=== PATIENT | female | born 1980 | race Hispanic/Latino ===

== ENCOUNTER 2018-07-08 18:03 | Emergency (ER) | payer MEDICAID ==
[~2018-07-08 18:03] MED LIST: FOLI1TAB15 PO; GLIM1TAB2 PO; LISI2.5T2 PO; METF-446 PO
== END 2018-07-08 19:55 | disposition home or self-care (01) ==
LOC: EDH 18:03
DX: E11.65 Type 2 diabetes mellitus with hyperglycemia (principal); J06.9 Acute upper respiratory infection, unspecified; Z88.6 Allergy status to analgesic agent; Z88.0 Allergy status to penicillin; Z79.84 Long term (current) use of oral hypoglycemic drugs; Z98.890 Other specified postprocedural states; Z90.49 Acquired absence of other specified parts of digestive tract
CPT/HCPCS: 82948; 99282

== ENCOUNTER 2020-09-28 19:37 | Emergency (ER) | payer MEDICAID ==
[~2020-09-28 19:37] MED LIST changes: +GLIM1TAB18 PO; -GLIM1TAB2 PO; +LISI2.5T13 PO; -LISI2.5T2 PO
[2020-09-28 19:57] LABS: BASOPHILS % (AUTO) 0.5 % (0.0-5.0); EOSINOPHILS % (AUTO) 1.2 % (0.0-8.0); HEMATOCRIT 40.6 % (36-48); LYMPHOCYTES % (AUTO) 22.4 % (21.0-51.0); MEAN CORPUSCULAR HEMOGLOBIN 28.4 pg (27.0-33.0); MEAN CORPUSCULAR HGB CONC 33.3 g/dL (32.0-36.0); MEAN CORPUSCULAR VOLUME 85.3 fL (79-99); MONOCYTES % (AUTO) 6.6 % (3.0-13.0); PLATELET COUNT (AUTO) 468 K/uL (130-400); RED BLOOD CELL COUNT(AUTO) 4.76 MIL/uL (4.00-5.50); RED CELL DISTRIBUTION WIDTH 14.1 % (11.0-15.5); WHITE BLOOD COUNT (AUTO) 16.2 K/uL (4.8-10.8)
[2020-09-28 20:05] LABS: CREATININE 1.1 mg/dL (0.5-1.5)
[2020-09-28 20:15] LABS: ALBUMIN 3.8 g/dL (3.5-5.0); BILIRUBIN,TOTAL 0.3 mg/dL (0.2-1.0); TOTAL PROTEIN, SERUM 8.2 g/dL (6.0-8.3)
[2020-09-28 20:44] LABS: T4 (THYROXINE) 10.6 ug/dL (4.7-13.3); THYROID STIMULATING HORMONE 3.82 uIU/mL (0.36-3.74)
[2020-09-28 22:45] LABS: AMPHET/METH SCREEN,URINE NEGATIVE (NEGATIVE); BARBITURATE SCREEN, URINE NEGATIVE (NEGATIVE); BENZODIAZEPINES SCREEN,URINE NEGATIVE (NEGATIVE); CANNABINOID SCREEN,URINE NEGATIVE (NEGATIVE); COCAINE SCREEN,URINE NEGATIVE (NEGATIVE); OPIATE SCREEN,URINE NEGATIVE (NEGATIVE); PHENCYCLIDINE SCREEN,URINE NEGATIVE (NEGATIVE)
[2020-09-29] MEDS ORDERED: METOPROLOL TARTRATE 1 MG/ML 5ML VIAL IV ONE (00:07)
[2021-01-19] MEDS ORDERED: LISI2.5T13 PO (00:09)
[2021-01-19] MEDS ORDERED: SITA1TAB6 PO (00:09)
[2021-01-19] MEDS ORDERED: VERA120T92 PO (00:09)
[2021-01-19] MEDS ORDERED: DILT120C89 PO (11:53)
[2021-01-19] MEDS ORDERED: LEVO500T90 PO (11:56)
== END 2020-09-29 03:07 | disposition home or self-care (01) ==
LOC: EDH 19:37
DX: I47.1 Supraventricular tachycardia (principal); R42 Dizziness and giddiness; E11.9 Type 2 diabetes mellitus without complications; Z88.0 Allergy status to penicillin; Z88.6 Allergy status to analgesic agent; Z90.49 Acquired absence of other specified parts of digestive tract; Z98.890 Other specified postprocedural states
CPT/HCPCS: 36415; 71045; 80053; 80305; 84436; 84443; 84484; 85025; 93005; 96361; 96374; 99285; J3490; J7030

== ENCOUNTER 2022-03-27 08:52 | Emergency (ER) | payer MEDICAID ==
[~2022-03-27] VITALS: Ht 167.6 cm; Wt 78.5 kg
[~2022-03-27 08:52] MED LIST changes: +DILT120C89 PO; +LEVO-70 PO; -METF-446 PO; +SITA1TAB6 PO
[2022-03-27 09:25] LABS: BASOPHILS % (AUTO) 0.3 % (0.0-5.0); EOSINOPHILS % (AUTO) 0.8 % (0.0-8.0); HEMATOCRIT 41.8 % (36-48); LYMPHOCYTES % (AUTO) 4.8 % (21.0-51.0); MEAN CORPUSCULAR HEMOGLOBIN 27.4 pg (27.0-33.0); MEAN CORPUSCULAR VOLUME 83.1 fL (79-99); NEUTROPHILS % (AUTO) 89.6 % (40.0-77.0); PLATELET COUNT (AUTO) 394 K/uL (130-400); RED BLOOD CELL COUNT(AUTO) 5.03 MIL/uL (4.00-5.50); RED CELL DISTRIBUTION WIDTH 14.6 % (11.0-15.5); WHITE BLOOD COUNT (AUTO) 17.3 K/uL (4.8-10.8)
[2022-03-27 09:32] LABS: CREATININE 0.9 mg/dL (0.5-1.5); POTASSIUM 4.5 mmol/L (3.5-5.1)
[2022-03-27 09:36] LABS: ALBUMIN 3.7 g/dL (3.5-5.0); TOTAL PROTEIN, SERUM 8.1 g/dL (6.0-8.3)
[2022-03-27] MEDS ORDERED: 0.9%NACL 1000ML 1,000 ML IV SCH (10:30)
[2022-03-27] MEDS ORDERED: HYDROCODONE/ACETAMINOPHEN 5/325 MG TAB PO ONE (10:30)
[2022-03-27] MEDS ORDERED: DILTIAZEM 180MG SR CAP PO ONE (11:30)
[2022-03-27] MEDS ORDERED: CLINDAMYCIN IVPB 600MG/50ML 50 ML IV ONE (11:30)
[2022-03-27 11:34] LABS: APPEARANCE,URINE CLEAR (CLEAR); BILIRUBIN,URINE NEGATIVE (NEGATIVE); COLOR,URINE YELLOW (YELLOW); GLUCOSE, URINE (UA) >=1000 mg/dL (NEGATIVE); KETONES,URINE 40 mg/dL (NEGATIVE); LEUKOCYTE ESTERASE ,URINE NEGATIVE Leu/uL (NEGATIVE); NITRATE,URINE NEGATIVE (NEGATIVE); OCCULT BLOOD,URINE SMALL (NEGATIVE); PH,URINE 5.5 (5.0-8.0); PROTEIN,URINE NEGATIVE (NEGATIVE); UROBILINOGEN,URINE 0.2 mg/dL (0.2-1.0)
[2022-03-27 11:50] LABS: BACTERIA,URINE Rare /HPF (None Seen); RBC,URINE 0-1 /HPF (0-1); SQUAMOUS EPITHELIAL CELL,UR 0-2 /HPF (0-2); WBC,URINE None Seen /HPF (0-1)
[2022-03-27] MEDS ORDERED: ACET-2079 PO (12:47)
[2022-03-27] MEDS ORDERED: CLIN-141 PO (12:47)
[2022-03-27 13:06] VITALS: BP 105/73
== END 2022-03-27 13:07 | disposition home or self-care (01) ==
LOC: EDH 08:52
DX: J02.0 Streptococcal pharyngitis (principal); E86.0 Dehydration; Z20.822 Contact with and (suspected) exposure to COVID-19; E11.9 Type 2 diabetes mellitus without complications; I10 Essential (primary) hypertension; Z88.0 Allergy status to penicillin; Z79.899 Other long term (current) drug therapy; Z88.6 Allergy status to analgesic agent; Z79.84 Long term (current) use of oral hypoglycemic drugs
CPT/HCPCS: 99284; 96365; 87635; 96361; 80053; 85025; 87880; 87804 ×2; 81001; 36415; 93005; C9803; J7030; J3490

== ENCOUNTER 2022-07-31 11:09 | Emergency (ER) | payer MEDICAID ==
[~2022-07-31] VITALS: Ht 160 cm; Wt 83.9 kg
[~2022-07-31 11:09] MED LIST changes: +ACET-2079 PO; +CLIN-141 PO
[2022-07-31] MEDS ORDERED: ADENOSINE 6MG VIAL IV ONE ×2 (11:17→12:00)
[2022-07-31 11:47] LABS: BASOPHILS % (AUTO) 0.5 % (0.0-5.0); EOSINOPHILS % (AUTO) 1.1 % (0.0-8.0); HEMATOCRIT 46.8 % (36-48); LYMPHOCYTES % (AUTO) 37.7 % (21.0-51.0); MEAN CORPUSCULAR HEMOGLOBIN 27.5 pg (27.0-33.0); MEAN CORPUSCULAR HGB CONC 32.3 g/dL (32.0-36.0); MEAN CORPUSCULAR VOLUME 85.2 fL (79-99); MONOCYTES % (AUTO) 6.3 % (3.0-13.0); PLATELET COUNT (AUTO) 465 K/uL (130-400); RED BLOOD CELL COUNT(AUTO) 5.49 MIL/uL (4.00-5.50); RED CELL DISTRIBUTION WIDTH 14.2 % (11.0-15.5); WHITE BLOOD COUNT (AUTO) 16.1 K/uL (4.8-10.8)
[2022-07-31 11:58] LABS: CREATININE 0.9 mg/dL (0.5-1.5); POTASSIUM 3.8 mmol/L (3.5-5.1)
[2022-07-31 12:02] LABS: ALBUMIN 4.3 g/dL (3.5-5.0); TOTAL PROTEIN, SERUM 8.9 g/dL (6.0-8.3)
[2022-07-31 13:25] VITALS: BP 98/67
== END 2022-07-31 13:38 | disposition home or self-care (01) ==
LOC: EDH 11:09
DX: I47.1 Supraventricular tachycardia (principal); I10 Essential (primary) hypertension; E11.9 Type 2 diabetes mellitus without complications; Z88.0 Allergy status to penicillin; Z88.6 Allergy status to analgesic agent; Z79.84 Long term (current) use of oral hypoglycemic drugs; Z79.899 Other long term (current) drug therapy; Z98.890 Other specified postprocedural states
CPT/HCPCS: 99285; 96374; 71045; 84484; 80053; 85025; 36415; 93005 ×3; J3490; J0153

== ENCOUNTER 2023-04-09 14:46 | Emergency (ER) | payer MEDICAID, OTHER ==
[~2023-04-09] VITALS: Ht 160 cm; Wt 78.9 kg
[~2023-04-09 14:46] MED LIST changes: +BACI30OI10 TP
[2023-04-09 15:16] LABS: BASOPHILS # (AUTO) 0.07 K/uL (0.00-0.20); BASOPHILS % (AUTO) 0.4 % (0.0-5.0); EOSINOPHILS # (AUTO) 0.11 K/uL (0.00-0.70); EOSINOPHILS % (AUTO) 0.6 % (0.0-8.0); HEMATOCRIT 43.4 % (36-48); IMMATURE GRANULOCYTE ABSOLUTE 0.09 K/uL (0-1); LYMPHOCYTES # (AUTO) 3.9 K/uL (1.0-4.8); LYMPHOCYTES % (AUTO) 20.1 % (21.0-51.0); MEAN CORPUSCULAR HEMOGLOBIN 27.5 pg (27.0-33.0); MEAN CORPUSCULAR HGB CONC 31.8 g/dL (32.0-36.0); MEAN CORPUSCULAR VOLUME 86.5 fL (79-99); MONOCYTES % (AUTO) 5.4 % (3.0-13.0); NEUTROPHILS # (AUTO) 14.1 K/uL (1.8-7.7); PLATELET COUNT (AUTO) 502 K/uL (130-400); RED BLOOD CELL COUNT(AUTO) 5.02 MIL/uL (4.00-5.50); RED CELL DISTRIBUTION WIDTH 14.4 % (11.0-15.5); WHITE BLOOD COUNT (AUTO) 19.2 K/uL (4.8-10.8)
[2023-04-09 15:44] LABS: ALBUMIN 4.2 g/dL (3.5-5.0); BILIRUBIN,TOTAL 0.5 mg/dL (0.2-1.0); MAGNESIUM 1.7 mg/dL (1.80-2.40)
[2023-04-09] MEDS ORDERED: MAGNESIUM OXIDE 400 MG TABLET PO ONE ×2 (16:24→16:30)
[2023-04-09 16:58] LABS: APPEARANCE,URINE CLEAR (CLEAR); BILIRUBIN,URINE NEGATIVE (NEGATIVE); GLUCOSE, URINE (UA) >=1000 mg/dL (NEGATIVE); HCG,QUALITATIVE URINE NEGATIVE (NEGATIVE); KETONES,URINE 5 mg/dL (NEGATIVE); LEUKOCYTE ESTERASE ,URINE NEGATIVE Leu/uL (NEGATIVE); NITRATE,URINE NEGATIVE (NEGATIVE); PROTEIN,URINE NEGATIVE (NEGATIVE); UROBILINOGEN,URINE 0.2 mg/dL (0.2-1.0)
[2023-04-09 16:59] LABS: ADD UA MICROSCOPIC YES; COLOR,URINE LIGHT-YELLOW (YELLOW)
[2023-04-09 17:00] LABS: RBC,URINE 0-1 /HPF (0-1); SQUAMOUS EPITHELIAL CELL,UR RARE /HPF (0-2); WBC,URINE 0-1 /HPF (0-1)
[2023-04-09] MEDS ORDERED: LACTATED RINGERS 1000ML 1,000 ML IV ONE (17:49)
[2023-04-09] MEDS ORDERED: ACETAMINOPHEN 325 MG TAB ONE (17:49)
[2023-04-09] MEDS ORDERED: LACTATED RINGERS 1000ML IV SCH (18:00)
[2023-04-09] MEDS ORDERED: ACETAMINOPHEN 325 MG TAB PO ONE (18:00)
[2023-04-09 19:13] VITALS: BP 122/72; PULSE 97; RESP 18; O2SAT 99
== END 2023-04-09 19:33 | disposition home or self-care (01) ==
LOC: EDH 14:46
DX: D72.829 Elevated white blood cell count, unspecified (principal); H53.8 Other visual disturbances; R20.0 Anesthesia of skin; R51.9 Headache, unspecified; I10 Essential (primary) hypertension; E11.9 Type 2 diabetes mellitus without complications; E78.00 Pure hypercholesterolemia, unspecified; Z79.899 Other long term (current) drug therapy; Z98.890 Other specified postprocedural states; Z88.0 Allergy status to penicillin; Z88.6 Allergy status to analgesic agent
CPT/HCPCS: 99285; 70551; 96360; 70450; 71045; 82550; 83735; 83874; 84484; 80053; 85025; 81001; 81025; 36415; 93005; J7120

== ENCOUNTER 2023-06-04 19:25 | Emergency (ER) | payer OTHER ==
[~2023-06-04] VITALS: Ht 157.5 cm; Wt 79.4 kg
[2023-06-04 19:53] LABS: BASOPHILS # (AUTO) 0.05 K/uL (0.00-0.20); BASOPHILS % (AUTO) 0.3 % (0.0-5.0); EOSINOPHILS # (AUTO) 0.27 K/uL (0.00-0.70); EOSINOPHILS % (AUTO) 1.6 % (0.0-8.0); HEMATOCRIT 43.8 % (36-48); IMMATURE GRANULOCYTE ABSOLUTE 0.09 K/uL (0-1); LYMPHOCYTES # (AUTO) 4.4 K/uL (1.0-4.8); LYMPHOCYTES % (AUTO) 26.1 % (21.0-51.0); MEAN CORPUSCULAR HEMOGLOBIN 26.8 pg (27.0-33.0); MEAN CORPUSCULAR HGB CONC 32.4 g/dL (32.0-36.0); MEAN CORPUSCULAR VOLUME 82.6 fL (79-99); MONOCYTES # (AUTO) 1.1 K/uL (0.1-1.0); MONOCYTES % (AUTO) 6.6 % (3.0-13.0); NEUTROPHILS % (AUTO) 64.9 % (40.0-77.0); PLATELET COUNT (AUTO) 521 K/uL (130-400)
[2023-06-04 19:58] LABS: HCG,QUALITATIVE URINE NEGATIVE (NEGATIVE)
[2023-06-04 19:59] LABS: CREATININE 1.3 mg/dL (0.5-1.5); POTASSIUM 3.5 mmol/L (3.5-5.1)
[2023-06-04 20:06] LABS: BILIRUBIN,TOTAL 0.4 mg/dL (0.2-1.0)
[2023-06-04 20:19] LABS: APPEARANCE,URINE CLEAR (CLEAR); BILIRUBIN,URINE NEGATIVE (NEGATIVE); COLOR,URINE COLORLESS (YELLOW); GLUCOSE, URINE (UA) >=1000 mg/dL (NEGATIVE); KETONES,URINE NEGATIVE (NEGATIVE); LEUKOCYTE ESTERASE ,URINE NEGATIVE Leu/uL (NEGATIVE); NITRATE,URINE NEGATIVE (NEGATIVE); OCCULT BLOOD,URINE NEGATIVE (NEGATIVE); PROTEIN,URINE NEGATIVE (NEGATIVE); UROBILINOGEN,URINE 0.2 mg/dL (0.2-1.0)
[2023-06-04 20:20] LABS: ADD UA MICROSCOPIC YES
[2023-06-04 20:24] LABS: BACTERIA,URINE RARE /HPF (None Seen); SQUAMOUS EPITHELIAL CELL,UR FEW /HPF (0-2)
[2023-06-04 21:07] LABS: RAPID GROUP A STREP negative (NEGATIVE)
[2023-06-04 21:12] LABS: SARS-CoV-2, RNA, NAAT NEGATIVE SARS CoV-2 (NEGATIVE)
[2023-06-04 21:18] LABS: INFLUENZA TYPE A Negative For Type A (NEGATIVE); INFLUENZA TYPE B Negative For Type B (NEGATIVE)
[2023-06-04] MEDS ORDERED: MECL-226 PO (23:12)
[2023-06-04 23:15] VITALS: BP 117/50; PULSE 74; RESP 14; O2SAT 97
== END 2023-06-04 23:21 | disposition home or self-care (01) ==
LOC: EDH 19:25
DX: R42 Dizziness and giddiness (principal); D72.829 Elevated white blood cell count, unspecified; I10 Essential (primary) hypertension; E11.9 Type 2 diabetes mellitus without complications; E78.00 Pure hypercholesterolemia, unspecified; Z20.822 Contact with and (suspected) exposure to COVID-19; Z79.899 Other long term (current) drug therapy; Z90.49 Acquired absence of other specified parts of digestive tract; Z98.890 Other specified postprocedural states; Z88.0 Allergy status to penicillin; Z88.8 Allergy status to other drugs, medicaments and biological substances
CPT/HCPCS: 99285; 70450; 71045; 87635; 82550; 84484; 80053; 85025; 87880; 87804 ×2; 81001; 81025; 36415; 93005; C9803

== ENCOUNTER 2023-08-28 08:25 | Observation (INO) | payer BC, OTHER ==
[~2023-08-28] VITALS: Ht 160 cm; Wt 80.5 kg
[~2023-08-28 08:25] MED LIST changes: +MECL-226 PO
[2023-08-28] MEDS: ADENOSINE 6MG VIAL IV ONE ×2 (08:48)
[2023-08-28 08:58] LABS: BASOPHILS # (AUTO) 0.07 K/uL (0.00-0.20); BASOPHILS % (AUTO) 0.4 % (0.0-5.0); EOSINOPHILS # (AUTO) 0.16 K/uL (0.00-0.70); EOSINOPHILS % (AUTO) 0.9 % (0.0-8.0); HEMATOCRIT 46.7 % (36-48); IMMATURE GRANULOCYTE ABSOLUTE 0.06 K/uL (0-1); LYMPHOCYTES # (AUTO) 3.8 K/uL (1.0-4.8); LYMPHOCYTES % (AUTO) 21.3 % (21.0-51.0); MEAN CORPUSCULAR HEMOGLOBIN 26.9 pg (27.0-33.0); MEAN CORPUSCULAR HGB CONC 32.8 g/dL (32.0-36.0); MEAN CORPUSCULAR VOLUME 82.1 fL (79-99); MONOCYTES # (AUTO) 0.8 K/uL (0.1-1.0); MONOCYTES % (AUTO) 4.7 % (3.0-13.0); NEUTROPHILS # (AUTO) 12.8 K/uL (1.8-7.7); NEUTROPHILS % (AUTO) 72.4 % (40.0-77.0); PLATELET COUNT (AUTO) 600 K/uL (130-400); RED BLOOD CELL COUNT(AUTO) 5.69 MIL/uL (4.00-5.50); WHITE BLOOD COUNT (AUTO) 17.7 K/uL (4.8-10.8)
[2023-08-28] MEDS: CLINDAMYCIN IVPB 600MG/50ML 50 ML IV SCH (09:06)
[2023-08-28 09:15] LABS: CREATININE 0.9 mg/dL (0.5-1.5); POTASSIUM 4.4 mmol/L (3.5-5.1)
[2023-08-28 09:28] LABS: MAGNESIUM 1.9 mg/dL (1.80-2.40); THYROID STIMULATING HORMONE 2.39 uIU/mL (0.36-3.74)
[2023-08-28 10:10] LABS: B-TYPE NATRIURETIC PEPTIDE < 5 pg/mL (0-100)
[2023-08-28 10:50] LABS: APPEARANCE,URINE CLEAR (CLEAR); BILIRUBIN,URINE NEGATIVE (NEGATIVE); COLOR,URINE COLORLESS (YELLOW); GLUCOSE, URINE (UA) >=1000 mg/dL (NEGATIVE); KETONES,URINE 10 mg/dL (NEGATIVE); LEUKOCYTE ESTERASE ,URINE NEGATIVE Leu/uL (NEGATIVE); NITRATE,URINE NEGATIVE (NEGATIVE); OCCULT BLOOD,URINE SMALL (NEGATIVE); PROTEIN,URINE NEGATIVE (NEGATIVE); UROBILINOGEN,URINE 0.2 mg/dL (0.2-1.0)
[2023-08-28 10:51] LABS: ADD UA MICROSCOPIC YES
[2023-08-28 10:52] LABS: MUCUS,URINE RARE LPF (None Seen)
[2023-08-28] MEDS ORDERED: ONDANSETRON 4MG INJ IVP PRN (12:30)
[2023-08-28] MEDS ORDERED: ACETAMINOPHEN 325 MG TAB PO PRN (12:30)
[2023-08-28] MEDS ORDERED: MAGNESIUM 2GM PREMIX 50ML 50 ML IV SCH (12:30)
[2023-08-28 12:47] LABS: HEMOGLOBIN A1C 7.3 % (4.0-6.0)
[2023-08-28] MEDS: 0.9%NACL 1000ML 1,000 ML IV SCH (14:14)
[2023-08-28 15:06] LABS: AMPHET/METH SCREEN,URINE NEGATIVE (NEGATIVE); BARBITURATE SCREEN, URINE NEGATIVE (NEGATIVE); BENZODIAZEPINES SCREEN,URINE NEGATIVE (NEGATIVE); CANNABINOID SCREEN,URINE NEGATIVE (NEGATIVE); COCAINE SCREEN,URINE NEGATIVE (NEGATIVE); OPIATE SCREEN,URINE NEGATIVE (NEGATIVE); PHENCYCLIDINE SCREEN,URINE NEGATIVE (NEGATIVE)
[2023-08-28] MEDS ORDERED: DILT240C97 PO (15:12)
[2023-08-28 16:00] VITALS: O2SAT 96
[2023-08-28 16:05] VITALS: BP 137/81; PULSE 85; RESP 18
[2023-08-28] MEDS: INSULIN HUMULIN R 100 UNIT/ML 3ML SQ SCH (16:30)
[2023-08-28] MEDS: DILTIAZEM 180MG SR CAP PO ONE (17:31)
[2023-08-28 19:46] VITALS: BP 139/79; PULSE 102; RESP 18
[2023-08-28 20:00] VITALS: O2SAT 99
[2023-08-28] MEDS: ATORVASTATIN 20 MG TABLET PO SCH (21:39)
[2023-08-28] MEDS: FAMOTIDINE 20MG VIAL IV SCH (21:39)
[2023-08-28 22:30] VITALS: PULSE 140; RESP 18
[2023-08-28 22:40] VITALS: PULSE 95; RESP 18
[2023-08-29 00:32] VITALS: BP 137/74; PULSE 92; RESP 18
[2023-08-29 04:00] LABS: BASOPHILS # (AUTO) 0.07 K/uL (0.00-0.20); BASOPHILS % (AUTO) 0.5 % (0.0-5.0); EOSINOPHILS % (AUTO) 1.3 % (0.0-8.0); HEMATOCRIT 40.8 % (36-48); IMMATURE GRANULOCYTE ABSOLUTE 0.05 K/uL (0-1); LYMPHOCYTES # (AUTO) 3.7 K/uL (1.0-4.8); LYMPHOCYTES % (AUTO) 24.5 % (21.0-51.0); MEAN CORPUSCULAR HEMOGLOBIN 27.3 pg (27.0-33.0); MEAN CORPUSCULAR HGB CONC 32.6 g/dL (32.0-36.0); MEAN CORPUSCULAR VOLUME 83.6 fL (79-99); MONOCYTES # (AUTO) 1.1 K/uL (0.1-1.0); MONOCYTES % (AUTO) 7.2 % (3.0-13.0); NEUTROPHILS # (AUTO) 9.9 K/uL (1.8-7.7); NEUTROPHILS % (AUTO) 66.2 % (40.0-77.0); PLATELET COUNT (AUTO) 517 K/uL (130-400); RED BLOOD CELL COUNT(AUTO) 4.88 MIL/uL (4.00-5.50); WHITE BLOOD COUNT (AUTO) 14.9 K/uL (4.8-10.8)
[2023-08-29 04:12] LABS: ALBUMIN 3.3 g/dL (3.5-5.0); BILIRUBIN,TOTAL 0.7 mg/dL (0.2-1.0); CREATININE 0.9 mg/dL (0.5-1.5); MAGNESIUM 1.9 mg/dL (1.80-2.40); POTASSIUM 4.1 mmol/L (3.5-5.1); TOTAL PROTEIN, SERUM 7.4 g/dL (6.0-8.3)
[2023-08-29 04:38] VITALS: BP 135/78; PULSE 90; RESP 18
[2023-08-29 08:00] VITALS: O2SAT 97
[2023-08-29 08:21] VITALS: BP 139/76; PULSE 89; RESP 18
[2023-08-29] MEDS ORDERED: DILTIAZEM HCL PO SCH (09:00)
[2023-08-29] MEDS: DILTIAZEM 180MG SR CAP PO SCH (09:22)
[2023-08-29] MEDS: FOLIC ACID 1 MG TABLET PO SCH (09:22)
[2023-08-29] MEDS ORDERED: DILT360C24 PO (09:28)
[2023-08-29] MEDS ORDERED: AMOX-426 PO (09:36)
[2023-08-29] MEDS ORDERED: CLIN-141 PO (10:09)
== END 2023-08-29 10:24 | disposition home or self-care (01) ==
LOC: EDH 08:25 → EDHIP 12:11 → INTOOBSV 12:11 → 2AH 15:01
PROVIDERS: ADMIT Internal Medicine; ATTEND Internal Medicine
DX: I47.10 Supraventricular tachycardia, unspecified (principal); I10 Essential (primary) hypertension; E78.5 Hyperlipidemia, unspecified; E86.0 Dehydration; E66.9 Obesity, unspecified; D75.9 Disease of blood and blood-forming organs, unspecified; K04.7 Periapical abscess without sinus; D72.829 Elevated white blood cell count, unspecified; D75.839 Thrombocytosis, unspecified; R00.2 Palpitations; E11.9 Type 2 diabetes mellitus without complications; F19.90 Other psychoactive substance use, unspecified, uncomplicated; Z79.899 Other long term (current) drug therapy; Z90.49 Acquired absence of other specified parts of digestive tract; Z98.891 History of uterine scar from previous surgery; Z68.31 Body mass index [BMI] 31.0-31.9, adult; Z88.0 Allergy status to penicillin; Z88.6 Allergy status to analgesic agent
CPT/HCPCS: 99285; 96361 ×2; 96365; 71045; 96375; 83036; 84443; 82550; 83735 ×2; 84484 ×2; 80048; 83880; 80305; 85025 ×2; 82948 ×3; 84439; 84481; 86140; 81025; 36415 ×2; 93005 ×2; 84145; 81001; 96376; 80053; J0153; J3490 ×3; G0378

== ENCOUNTER 2023-09-09 07:12 | Emergency (ER) | payer BC, OTHER ==
[~2023-09-09] VITALS: Ht 160 cm; Wt 80.3 kg
[~2023-09-09 07:12] MED LIST changes: -DILT120C89 PO; +DILT360C24 PO; -LEVO-70 PO
[2023-09-09 07:36] LABS: BASOPHILS # (AUTO) 0.08 K/uL (0.00-0.20); BASOPHILS % (AUTO) 0.5 % (0.0-5.0); EOSINOPHILS # (AUTO) 0.24 K/uL (0.00-0.70); EOSINOPHILS % (AUTO) 1.5 % (0.0-8.0); HEMATOCRIT 44.4 % (36-48); IMMATURE GRANULOCYTE ABSOLUTE 0.09 K/uL (0-1); LYMPHOCYTES # (AUTO) 4.2 K/uL (1.0-4.8); LYMPHOCYTES % (AUTO) 26.1 % (21.0-51.0); MEAN CORPUSCULAR VOLUME 84.6 fL (79-99); MONOCYTES # (AUTO) 0.9 K/uL (0.1-1.0); MONOCYTES % (AUTO) 5.6 % (3.0-13.0); NEUTROPHILS # (AUTO) 10.5 K/uL (1.8-7.7); NEUTROPHILS % (AUTO) 65.7 % (40.0-77.0); PLATELET COUNT (AUTO) 464 K/uL (130-400); RED BLOOD CELL COUNT(AUTO) 5.25 MIL/uL (4.00-5.50); RED CELL DISTRIBUTION WIDTH 15.9 % (11.0-15.5)
[2023-09-09 07:47] LABS: INR <= 0.93 (0.85-1.15); PROTHROMBIN TIME 10.1 SEC (9.6-11.6)
[2023-09-09 07:48] LABS: PARTIAL THROMBOPLASTIN TIME 27.2 SEC (26.3-35.5)
[2023-09-09] MEDS: DILTIAZEM 125 MG/25 ML INJ IV ONE (07:48)
[2023-09-09] MEDS: DILTIAZEM 25MG INJ IVP ONE ×2 (07:48→09:14)
[2023-09-09 07:53] LABS: ALBUMIN 3.9 g/dL (3.5-5.0); BILIRUBIN,TOTAL 0.3 mg/dL (0.2-1.0); CREATININE 0.8 mg/dL (0.5-1.5); POTASSIUM 4.5 mmol/L (3.5-5.1); TOTAL PROTEIN, SERUM 8.8 g/dL (6.0-8.3)
[2023-09-09 08:13] LABS: B-TYPE NATRIURETIC PEPTIDE 10 pg/mL (0-100)
[2023-09-09 08:45] LABS: THYROID STIMULATING HORMONE 3.26 uIU/mL (0.36-3.74)
[2023-09-09] MEDS: ADENOSINE 6MG VIAL IV ONE (08:55)
[2023-09-09 09:01] LABS: APPEARANCE,URINE CLEAR (CLEAR); BILIRUBIN,URINE NEGATIVE (NEGATIVE); COLOR,URINE COLORLESS (YELLOW); GLUCOSE, URINE (UA) >=1000 mg/dL (NEGATIVE); KETONES,URINE NEGATIVE (NEGATIVE); LEUKOCYTE ESTERASE ,URINE NEGATIVE Leu/uL (NEGATIVE); NITRATE,URINE NEGATIVE (NEGATIVE); OCCULT BLOOD,URINE NEGATIVE (NEGATIVE); PROTEIN,URINE NEGATIVE (NEGATIVE); UROBILINOGEN,URINE 0.2 mg/dL (0.2-1.0)
[2023-09-09 09:02] LABS: ADD UA MICROSCOPIC YES
[2023-09-09 09:07] LABS: RBC,URINE 0-1 /HPF (0-1); SQUAMOUS EPITHELIAL CELL,UR RARE /HPF (0-2)
[2023-09-09 12:32] VITALS: BP 108/69; PULSE 98; RESP 20; O2SAT 99
== END 2023-09-09 12:33 | disposition home or self-care (01) ==
LOC: EDH 07:12
DX: R00.0 Tachycardia, unspecified (principal); R00.2 Palpitations; R55 Syncope and collapse; I10 Essential (primary) hypertension; E11.9 Type 2 diabetes mellitus without complications; E78.00 Pure hypercholesterolemia, unspecified; Z79.84 Long term (current) use of oral hypoglycemic drugs; Z79.899 Other long term (current) drug therapy; Z90.49 Acquired absence of other specified parts of digestive tract; Z88.0 Allergy status to penicillin; Z88.6 Allergy status to analgesic agent; Z98.890 Other specified postprocedural states
CPT/HCPCS: 99285; 96374; 71045; 96375; 84443; 83735; 84484; 80053; 83880; 85025; 85610; 85730; 84439; 81001; 36415; 96376; 93005; J0153; J3490 ×2

== ENCOUNTER → 2023-10-19 | Outpatient (CLI) | payer OTHER ==
[~2023-10-19] MED LIST changes: -GLIM1TAB18 PO; +GLIM1TAB56 PO
[2023-10-19 12:20] LABS: CHOLESTEROL 164 mg/dL (<200); HDL CHOLESTEROL 61 mg/dL (35-85); LDL DIRECT 97 mg/dL (0-99); TRIGLYCERIDES 64 mg/dL (30-200)
[2023-10-19 12:26] LABS: HEMOGLOBIN A1C 7.7 % (4.0-6.0)
== END | disposition home or self-care (01) ==
LOC: LAB 09:33
PROVIDERS: ATTEND Student in an Organized Health Care Education/Training Program
DX: R00.0 Tachycardia, unspecified (principal); E78.5 Hyperlipidemia, unspecified; Z79.899 Other long term (current) drug therapy
CPT/HCPCS: 36415; 80061; 83036

== ENCOUNTER 2023-11-29 19:56 | Emergency (ER) | payer OTHER ==
[~2023-11-29] VITALS: Ht 160 cm; Wt 81.6 kg
[2023-11-29 19:59] VITALS: BP 157/82; PULSE 99; RESP 16
[2023-11-29] MEDS ORDERED: CLIN-141 PO (20:22)
[2023-11-29] MEDS ORDERED: MUPI22O TP (20:22)
[2023-11-29] MEDS ORDERED: IBUP-2077 PO (20:22)
[2023-11-29] MEDS: CLINDAMYCIN 150 MG CAP PO ONE (20:45)
[2023-11-29] MEDS: IBUPROFEN 800 MG TAB PO ONE (20:45)
[2023-11-29] MEDS: NEOMY SULF/BACITRA/POLYMYXIN B 1 EACH PACKET TP ONE (20:47)
[2023-11-29] MEDS: TETANUS/DIPHTHERIA TOXOID [ADULT] 0.5 ML VIAL IM ONE (20:47)
== END 2023-11-29 21:15 | disposition home or self-care (01) ==
LOC: EDH 19:56
DX: S81.852A Open bite, left lower leg, initial encounter (principal); S81.832A Puncture wound without foreign body, left lower leg, initial encounter; E11.9 Type 2 diabetes mellitus without complications; E78.00 Pure hypercholesterolemia, unspecified; I10 Essential (primary) hypertension; Z90.49 Acquired absence of other specified parts of digestive tract; W54.0XXA Bitten by dog, initial encounter; Y93.89 Activity, other specified; Y92.89 Other specified places as the place of occurrence of the external cause; Y99.8 Other external cause status
CPT/HCPCS: 90471; 90714

== ENCOUNTER 2024-02-27 12:29 | Inpatient (IN) | payer SELFPAY ==
[~2024-02-27] VITALS: Ht 160 cm; Wt 85.0 kg
[~2024-02-27 12:29] MED LIST changes: +IBUP-2077 PO; +MUPI22O TP
[2024-02-27 12:58] LABS: BASOPHILS # (AUTO) 0.09 K/uL (0.00-0.20); BASOPHILS % (AUTO) 0.4 % (0.0-5.0); EOSINOPHILS # (AUTO) 0.14 K/uL (0.00-0.70); EOSINOPHILS % (AUTO) 0.6 % (0.0-8.0); HEMATOCRIT 38.7 % (36-48); IMMATURE GRANULOCYTE ABSOLUTE 0.13 K/uL (0-1); LYMPHOCYTES # (AUTO) 3.2 K/uL (1.0-4.8); LYMPHOCYTES % (AUTO) 13.2 % (21.0-51.0); MEAN CORPUSCULAR HEMOGLOBIN 28.3 pg (27.0-33.0); MEAN CORPUSCULAR HGB CONC 33.1 g/dL (32.0-36.0); MEAN CORPUSCULAR VOLUME 85.4 fL (79-99); MONOCYTES # (AUTO) 1.4 K/uL (0.1-1.0); MONOCYTES % (AUTO) 5.8 % (3.0-13.0); NEUTROPHILS # (AUTO) 19.1 K/uL (1.8-7.7); NEUTROPHILS % (AUTO) 79.5 % (40.0-77.0); PLATELET COUNT (AUTO) 407 K/uL (130-400); RED BLOOD CELL COUNT(AUTO) 4.53 MIL/uL (4.00-5.50); RED CELL DISTRIBUTION WIDTH 15.3 % (11.0-15.5); WHITE BLOOD COUNT (AUTO) 24.1 K/uL (4.8-10.8)
[2024-02-27] MEDS ORDERED: CEFTRIAXONE 2GM VIAL IVPB ONE (14:30)
[2024-02-27] MEDS: 0.9%NACL 1000ML 2,340 ML IV ONE (14:40)
[2024-02-27] MEDS: LEVOFLOXACIN 750 MG/D5W 150 ML 150 ML IV ONE (14:40)
[2024-02-27 14:42] LABS: ALBUMIN 3.2 g/dL (3.5-5.0); BILIRUBIN,TOTAL 0.7 mg/dL (0.2-1.0); CREATININE 1.3 mg/dL (0.5-1.0)
[2024-02-27 14:46] LABS: POTASSIUM 7.6 mmol/L (3.5-5.1)
[2024-02-27] MEDS ORDERED: DEXTROSE 50%-WATER 25 GM/50 ML VIAL IV ONE (15:00)
[2024-02-27] MEDS: CALCIUM GLUC 1GM 1 GM in 0.9%NACL 100ML 100 ML IV ONE (15:13)
[2024-02-27] MEDS: ALBUTEROL 0.083% 2.5 MG/3 ML INH IH SCH (15:15)
[2024-02-27 15:17] VITALS: PULSE 82; RESP 20
[2024-02-27] MEDS: DEXTROSE 50%-WATER 50 ML DISP.SYRIN IV SCH (15:22)
[2024-02-27] MEDS: INSULIN humuLIN R 100 UNIT/ML 3ML IV ONE (15:24)
[2024-02-27] MEDS: CALCIUM GLUC 1GM/10ML VIAL ONE (15:25)
[2024-02-27] MEDS: KAYEXALATE 15GM/60ML PO SCH (15:25)
[2024-02-27] MEDS: DEXTROSE 50%-WATER 50 ML DISP.SYRIN IV ONE (15:25)
[2024-02-27] MEDS: 0.9%NACL 1000ML 1,000 ML IV ONE (15:31)
[2024-02-27] MEDS: ONDANSETRON 4MG INJ ONE (17:20)
[2024-02-27] MEDS: ONDANSETRON 4MG INJ IVP ONE (17:20)
[2024-02-27] MEDS ORDERED: cefTRIAXone 1G VIAL 1 GM in 0.9%NACL 50ML 50 ML IV SCH (18:30)
[2024-02-27] MEDS ORDERED: ONDANSETRON 4MG INJ IV PRN (18:30)
[2024-02-27] MEDS ORDERED: MORPHINE 2 MG SYG IV PRN (18:30)
[2024-02-27] MEDS: 0.9%NACL 1000ML 1,000 ML IV SCH (18:30)
[2024-02-27] MEDS ORDERED: acetaMINOPHEN 325 MG TAB PO PRN ×2 (18:30)
[2024-02-27 18:52] LABS: APPEARANCE,URINE CLEAR (CLEAR); BILIRUBIN,URINE NEGATIVE (NEGATIVE); COLOR,URINE COLORLESS (YELLOW); GLUCOSE, URINE (UA) >=1000 mg/dL (NEGATIVE); KETONES,URINE 10 mg/dL (NEGATIVE); LEUKOCYTE ESTERASE ,URINE NEGATIVE Leu/uL (NEGATIVE); NITRATE,URINE NEGATIVE (NEGATIVE); OCCULT BLOOD,URINE NEGATIVE (NEGATIVE); PH,URINE 5.5 (5.0-8.0); PROTEIN,URINE NEGATIVE (NEGATIVE); UROBILINOGEN,URINE 0.2 mg/dL (0.2-1.0)
[2024-02-27 18:54] LABS: ADD UA MICROSCOPIC YES
[2024-02-27 19:12] LABS: RBC,URINE 0-1 /HPF (0-1); SQUAMOUS EPITHELIAL CELL,UR RARE /HPF (0-2); WBC,URINE 0-1 /HPF (0-1)
[2024-02-27 19:55] LABS: ABG BASE EXCESS -7.9 mmol/L (-2.0-3.0); ABG HCO3 16.4 mmol/L (21.0-28.0); ABG OXYGEN SATURATION 96.4 % (94.0-98.0); ABG PCO2 30 mmHg (32-45); ABG PH 7.351 (7.350-7.450); CARBON MONOXIDE 0.3 % (0.5-1.5); DEVICE COMMENT RA; HHb 3.6; PO2, ARTERIAL BG 87.5 mmHg (83.0-108.0); VENT MODE, BG LR (ROOM AIR)
[2024-02-27] MEDS ORDERED: METF-446 PO (20:04)
[2024-02-27] MEDS ORDERED: CARV12.511 PO (20:05)
[2024-02-27 20:32] LABS: AMPHET/METH SCREEN,URINE NEGATIVE (NEGATIVE); BARBITURATE SCREEN, URINE NEGATIVE (NEGATIVE); BENZODIAZEPINES SCREEN,URINE NEGATIVE (NEGATIVE); CANNABINOID SCREEN,URINE NEGATIVE (NEGATIVE); COCAINE SCREEN,URINE NEGATIVE (NEGATIVE); OPIATE SCREEN,URINE NEGATIVE (NEGATIVE); PHENCYCLIDINE SCREEN,URINE NEGATIVE (NEGATIVE)
[2024-02-27 20:34] LABS: HEMOGLOBIN A1C 11.1 % (4.0-6.0)
[2024-02-27 20:55] LABS: CREATININE 1.2 mg/dL (0.5-1.0); POTASSIUM 4.8 mmol/L (3.5-5.1)
[2024-02-27] MEDS: FAMOTIDINE 20MG VIAL IV SCH (21:08)
[2024-02-27] MEDS: INSULIN humuLIN R 100 UNIT/ML 3ML SQ SCH (21:16)
[2024-02-27] MEDS: INSULIN GLARGINE 100 UNITS/ML 10 ML VIAL SQ SCH (21:20)
[2024-02-27 21:55] LABS: SARS-CoV-2, RNA, NAAT NEGATIVE SARS CoV-2 (NEGATIVE)
[2024-02-27 21:58] VITALS: BP 140/82; PULSE 86; RESP 20
[2024-02-27 22:03] LABS: INFLUENZA TYPE A Negative For Type A (NEGATIVE); INFLUENZA TYPE B Negative For Type B (NEGATIVE)
[2024-02-27] MEDS ORDERED: GLIM4TAB36 PO (22:42)
[2024-02-27] MEDS ORDERED: LISI10TA24 PO (22:42)
[2024-02-28] VITALS (9 sets, daily range): BP systolic 117–153; BP diastolic 63–93; PULSE 76–91; RESP 16–20; O2SAT 98
[2024-02-28 03:33] LABS: ABG BASE EXCESS -3.8 mmol/L (-2.0-3.0); ABG OXYGEN SATURATION 64.3 % (94.0-98.0); ABG PCO2 38 mmHg (32-45); ABG PH 7.367 (7.350-7.450); CARBON MONOXIDE 0.2 % (0.5-1.5); DEVICE COMMENT RA RN CHAVEZ; HHb 35.4; PO2, ARTERIAL BG < 45.0 mmHg (83.0-108.0); VENT MODE, BG RA VENOUS (ROOM AIR)
[2024-02-28 03:45] LABS: BASOPHILS # (AUTO) 0.05 K/uL (0.00-0.20); BASOPHILS % (AUTO) 0.3 % (0.0-5.0); EOSINOPHILS # (AUTO) 0.09 K/uL (0.00-0.70); EOSINOPHILS % (AUTO) 0.5 % (0.0-8.0); HEMATOCRIT 34.2 % (36-48); IMMATURE GRANULOCYTE ABSOLUTE 0.09 K/uL (0-1); LYMPHOCYTES % (AUTO) 20.6 % (21.0-51.0); MEAN CORPUSCULAR HEMOGLOBIN 29.1 pg (27.0-33.0); MEAN CORPUSCULAR HGB CONC 33.3 g/dL (32.0-36.0); MEAN CORPUSCULAR VOLUME 87.2 fL (79-99); MONOCYTES # (AUTO) 1.6 K/uL (0.1-1.0); MONOCYTES % (AUTO) 8.1 % (3.0-13.0); NEUTROPHILS # (AUTO) 13.4 K/uL (1.8-7.7); PLATELET COUNT (AUTO) 343 K/uL (130-400); RED BLOOD CELL COUNT(AUTO) 3.92 MIL/uL (4.00-5.50); RED CELL DISTRIBUTION WIDTH 15.4 % (11.0-15.5); WHITE BLOOD COUNT (AUTO) 19.1 K/uL (4.8-10.8)
[2024-02-28 04:28] LABS: ALBUMIN 3.1 g/dL (3.5-5.0); BILIRUBIN,TOTAL 0.5 mg/dL (0.2-1.0); CREATININE 0.8 mg/dL (0.5-1.0); POTASSIUM 3.3 mmol/L (3.5-5.1); THYROID STIMULATING HORMONE 5.45 uIU/mL (0.36-3.74); TOTAL PROTEIN, SERUM 6.9 g/dL (6.0-8.3)
[2024-02-28 04:53] LABS: ERYTHROCYTE SEDIMENTATION RATE 26 MM/HR (0-20)
[2024-02-28] MEDS: dilTIAZem 120MG SR CAP PO SCH (09:00)
[2024-02-28] MEDS: FOLic ACID 1 MG TABLET PO SCH (09:00)
[2024-02-28] MEDS: ENOXAPARIN SODIUM 30 MG/0.3 ML SQ SCH (09:00)
[2024-02-28] MEDS ORDERED: DILTIAZEM HCL 360 MG PO SCH (09:00)
[2024-02-28] MEDS: carVEDIlol 12.5 MG TABLET PO SCH (09:00)
[2024-02-28] MEDS: LEVOFLOXACIN 750 MG/D5W 150ML BAG IV SCH (17:54)
[2024-02-28] MEDS: INSULIN GLARGINE 100 UNITS/ML 10 ML VIAL SQ SCH (21:24)
[2024-02-29 04:10] VITALS: BP 129/72; PULSE 69; RESP 20
[2024-02-29 04:56] LABS: HEMATOCRIT 34.6 % (36-48); MEAN CORPUSCULAR HEMOGLOBIN 28.5 pg (27.0-33.0); MEAN CORPUSCULAR HGB CONC 33.2 g/dL (32.0-36.0); MEAN CORPUSCULAR VOLUME 85.9 fL (79-99); RED BLOOD CELL COUNT(AUTO) 4.03 MIL/uL (4.00-5.50); RED CELL DISTRIBUTION WIDTH 15.1 % (11.0-15.5); WHITE BLOOD COUNT (AUTO) 12.1 K/uL (4.8-10.8)
[2024-02-29 05:19] LABS: CREATININE 0.8 mg/dL (0.5-1.0); POTASSIUM 3.5 mmol/L (3.5-5.1)
[2024-02-29] MEDS ORDERED: POTASSIUM CHLORIDE 20MEQ/100ML 100 ML IV PRN (06:30)
[2024-02-29] MEDS ORDERED: POTASSIUM CHLORIDE 10% ELIXIR 20 MEQ/15 ML UDCUP PO PRN (06:30)
[2024-02-29] MEDS: KCL 20 MEQ ERTAB PO PRN (06:52)
[2024-02-29] MEDS: INSULIN humuLIN R 100 UNIT/ML 3ML SQ SCH ×2 (06:54→06:58)
[2024-02-29 08:00] VITALS: O2SAT 98
[2024-02-29 08:10] VITALS: BP 130/64; PULSE 76; RESP 20
[2024-02-29 09:22] VITALS: BP 130/64
== END 2024-02-29 11:00 | disposition home or self-care (01) | DRG 638 ==
LOC: EDH 12:29 → EDHIP 18:16 → 4AH 21:53
PROVIDERS: ADMIT Hospitalist; ATTEND Hospitalist
DX: E11.10 Type 2 diabetes mellitus with ketoacidosis without coma (principal); E87.1 Hypo-osmolality and hyponatremia; N17.9 Acute kidney failure, unspecified; R65.10 Systemic inflammatory response syndrome (SIRS) of non-infectious origin without acute organ dysfunction; Z20.822 Contact with and (suspected) exposure to COVID-19; I10 Essential (primary) hypertension; E11.65 Type 2 diabetes mellitus with hyperglycemia; E87.5 Hyperkalemia; E86.0 Dehydration; E86.1 Hypovolemia; I95.9 Hypotension, unspecified; D69.6 Thrombocytopenia, unspecified; E66.9 Obesity, unspecified; D72.829 Elevated white blood cell count, unspecified; E88.09 Other disorders of plasma-protein metabolism, not elsewhere classified; E78.00 Pure hypercholesterolemia, unspecified; R74.01 Elevation of levels of liver transaminase levels; G47.00 Insomnia, unspecified; Z68.30 Body mass index [BMI] 30.0-30.9, adult; Z79.4 Long term (current) use of insulin; Z79.84 Long term (current) use of oral hypoglycemic drugs; Z88.0 Allergy status to penicillin; Z90.49 Acquired absence of other specified parts of digestive tract; Z98.891 History of uterine scar from previous surgery
CPT/HCPCS: 36415; 36600; 70450; 71045; 76770; 80048; 80053; 80305; 81001; 82010; 82435; 82607; 82803; 82947; 82948; 83036; 83605; 83880; 84132; 84145; 84295; 84443; 84484; 84703; 85018; 85025; 85027; 85651; 85732; 87040; 87635; 87804; 87880; 93005; 94640; G0378; J0612; J1650; J1815; J1956; J2405; J3490; J7070

== ENCOUNTER 2024-03-17 11:41 | Emergency (ER) | payer BC ==
[~2024-03-17] VITALS: Ht 160 cm; Wt 81.6 kg
[~2024-03-17 11:41] MED LIST changes: -ACET-2079 PO; -BACI30OI10 TP; +CARV12.511 PO; -CLIN-141 PO; +GLIM4TAB36 PO; -IBUP-2077 PO; +LISI10TA24 PO; -LISI2.5T13 PO; +METF-446 PO
[2024-03-17 12:19] LABS: HEMATOCRIT 36.2 % (36-48); MEAN CORPUSCULAR HEMOGLOBIN 28.8 pg (27.0-33.0); MEAN CORPUSCULAR HGB CONC 33.7 g/dL (32.0-36.0); MEAN CORPUSCULAR VOLUME 85.4 fL (79-99); RED BLOOD CELL COUNT(AUTO) 4.24 MIL/uL (4.00-5.50); RED CELL DISTRIBUTION WIDTH 14.7 % (11.0-15.5); WHITE BLOOD COUNT (AUTO) 16.4 K/uL (4.8-10.8)
[2024-03-17] MEDS: mecliZINE HCL 25 MG TABLET PO ONE (12:22)
[2024-03-17 12:29] LABS: POTASSIUM 4.6 mmol/L (3.5-5.1)
[2024-03-17] MEDS: 0.9%NACL 1000ML 2,448 ML IV ONE (14:28)
[2024-03-17] MEDS: levoFLOXacin 750 MG/D5W 150ML BAG IV ONE (14:28)
[2024-03-17 14:29] LABS: APPEARANCE,URINE CLEAR (CLEAR); BILIRUBIN,URINE NEGATIVE (NEGATIVE); COLOR,URINE LIGHT-YELLOW (YELLOW); GLUCOSE, URINE (UA) TRACE mg/dL (NEGATIVE); KETONES,URINE 5 mg/dL (NEGATIVE); LEUKOCYTE ESTERASE ,URINE NEGATIVE Leu/uL (NEGATIVE); NITRATE,URINE NEGATIVE (NEGATIVE); OCCULT BLOOD,URINE NEGATIVE (NEGATIVE); PROTEIN,URINE NEGATIVE (NEGATIVE); UROBILINOGEN,URINE 0.2 mg/dL (0.2-1.0)
[2024-03-17 14:30] LABS: ADD UA MICROSCOPIC YES
[2024-03-17 14:35] LABS: BACTERIA,URINE RARE /HPF (None Seen); OTHER CASTS, URINE 1 /LPF (None Seen); RBC,URINE 0-1 /HPF (0-1); SQUAMOUS EPITHELIAL CELL,UR RARE /HPF (0-2); WBC,URINE 0-1 /HPF (0-1)
[2024-03-17 15:35] VITALS: BP 116/69; PULSE 66; RESP 18; TEMP 98.4; O2SAT 100
== END 2024-03-17 15:44 | disposition home or self-care (01) ==
LOC: EDH 11:41
DX: R42 Dizziness and giddiness (principal); D72.829 Elevated white blood cell count, unspecified; E87.20 Acidosis, unspecified; E11.9 Type 2 diabetes mellitus without complications; I10 Essential (primary) hypertension; Z87.442 Personal history of urinary calculi; Z88.0 Allergy status to penicillin; Z88.6 Allergy status to analgesic agent; Z79.899 Other long term (current) drug therapy; Z79.84 Long term (current) use of oral hypoglycemic drugs
CPT/HCPCS: 99284; 96365; 71045; 80048; 85027; 87040; 83605; 81001; 36415; J1956; J7030